=== PATIENT | female | born 1960 | race Caucasian/White ===

== ENCOUNTER 2016-11-14 08:44 | Inpatient (IN) | payer OTHER, MEDICARE ==
[~2016-11-14] VITALS: Ht 170.2 cm; Wt 59.2 kg
[2016-11-14 08:46] VITALS: BP 123/73; PULSE 71; RESP 21; TEMP 97.8; O2SAT 98
[2016-11-14] MEDS ORDERED: CYMB30CA PO (08:52)
[2016-11-14] MEDS ORDERED: GABA100C4 PO (08:53)
[2016-11-14 09:03] VITALS: O2SAT 100
[2016-11-14] MEDS ORDERED: SODIUM CHLOR 0.9% 1000 ML INJ 1,000 ML IV ONE (09:15)
[2016-11-14 09:38] LABS: AUTOMATED NEUTROPHIL # 1.8 TH/MM3 (1.8-7.7); BASOPHIL % 0.9 % (0.0-2.0); EOSINOPHIL # 0.2 TH/MM3 (0-0.4); EOSINOPHIL % 4.6 % (0.0-4.0); HEMATOCRIT 40.5 % (35.0-46.0); HEMO FLAGS DIFF FINAL; LYMPH % 52.5 % (9.0-44.0); LYMPHOCYTE # 2.7 TH/MM3 (1.0-4.8); MEAN CELL VOLUME 90.5 FL (80.0-100.0); MEAN CORPUSCULAR HEMOGLOBIN 29.6 PG (27.0-34.0); MEAN CORPUSCULAR HGB CONC 32.7 % (32.0-36.0); MONO % 6.9 % (0.0-8.0); NEUT % 35.1 % (16.0-70.0); PLATELET COUNT 168 TH/MM3 (150-450); RED BLOOD COUNT 4.48 MIL/MM3 (4.00-5.30); RED CELL DISTRIBUTION WIDTH 13.4 % (11.6-17.2); WHITE BLOOD COUNT 5.1 TH/MM3 (4.0-11.0)
[2016-11-14 10:00] LABS: ANION GAP 6 MEQ/L (5-15); AST (GOT) 27 U/L (15-37); BICARBONATE 29.3 MEQ/L (21.0-32.0); BLOOD UREA NITROGEN 9 MG/DL (7-18); CHLORIDE 105 MEQ/L (98-107); GLOMERULAR FILTRATION RATE 84 ML/MIN (>89); POTASSIUM 3.4 MEQ/L (3.5-5.1); SODIUM (NA) 140 MEQ/L (136-145)
[2016-11-14 10:04] LABS: ALKALINE PHOSPHATASE 71 U/L (45-117); ALT (GPT) 35 U/L (10-53); TOTAL BILIRUBIN ADULT 0.3 MG/DL (0.2-1.0)
[2016-11-14 10:44] LABS: AMPHETAMINE, URINE NEG (NEG); BARBITURATES, URINE NEG (NEG); COCAINE, URINE NEG (NEG)
[2016-11-14 11:13] VITALS: BP 121/68; PULSE 75; RESP 18; O2SAT 98
--- NOTE | 2016-11-14 11:24 | PD ---
HPI Chief Complaint: Medical Clearance Time Seen by Provider: 08:51 Travel History International Travel<30 days: No Contact w/Intl Traveler<30days: No Traveled to known affect area: No History of Present Illness HPI 56-year-old female presents with feeling anxious and that she is dehydrated. She states she feels like she's gonna crawl out of her skin. She denies any active suicidal or homicidal thoughts. She denies any other concurrent complaints. She states she has history of anxiety but not having it be this bad. Quality is crawling feeling. Severity is severe per patient. She denies specific modifying factors. PFSH Past Medical History Bipolar Disorder: Yes Anxiety: Yes Depression: Yes Diminished Hearing: No Fibromyalgia: Yes Neurologic: Yes (CHRONIC NECK PAIN S/P INJURY, GuillainBarr ) Menopausal: Yes : 4 Para: 1 Miscarriage: 1 : 2 Past Surgical History Other Surgery: Yes (BREAST AUGMENTATION) Social History Alcohol Use: No Tobacco Use: No Substance Use: No Allergies-Medications (Allergen,Severity, Reaction): Coded Allergies: Aspirin (Verified Allergy, Severe, 11/14/16) Ceclor (Verified Allergy, Severe, 11/14/16) Penicillin (Verified Allergy, Severe, 11/14/16) Tetracycline (Verified Allergy, Severe, 11/14/16) Tylenol (Verified Allergy, Severe, 11/14/16) Sulfa (Verified Allergy, Unknown, 11/14/16) Reported Meds & Prescriptions Reported Meds & Active Scripts Active Reported Gabapentin 100 Mg Cap 100 Mg PO DAILY Cymbalta DR (Duloxetine HCl) 30 Mg Capdr 30 Mg PO DAILY Review of Systems Except as stated in HPI: all other systems reviewed are Neg Physical Exam Narrative GENERAL: Well-nourished, well-developed patient. Anxious SKIN: Warm and dry. HEAD: Normocephalic and atraumatic. EYES: No injection or drainage. ENT: No nasal drainage noted. NECK: Supple, trachea midline. CARDIOVASCULAR: Regular rate and rhythm RESPIRATORY: Breath sounds equal bilaterally. No accessory muscle use. EXTREMITIES: No edema. NEUROLOGICAL: Awake and alert. Motor and sensory grossly within normal limits. Normal speech. Data Data Last Documented VS Vital Signs Date Time Temp Pulse Resp B/P Pulse Ox O2 Delivery O2 Flow Rate FiO2 11/14/16 11:13 75 18 121/68 98 11/14/16 09:03 Room Air 4/21/17 08:46 97.8 Orders Complete Blood Count With Diff (11/14/16 09:01) Comprehensive Metabolic Panel (11/14/16 09:01) Oximetry (11/14/16 09:01) Iv Access Insert/Monitor (11/14/16 09:01) Ecg Monitoring (11/14/16 09:01) Psych Screen (11/14/16 09:) Drug Screen, Random Urine (11/14/16 09:01) Alcohol (Ethanol) (11/14/16 09:01) Sodium Chlor 0.9% 1000 Ml Inj (Ns 1000 M (11/14/16 09:15) Labs Laboratory Tests Test 11/14/16 11/14/16 08:55 10:10 White Blood Count 5.1 TH/MM3 Red Blood Count 4.48 MIL/MM3 Hemoglobin 13.3 GM/DL Hematocrit 40.5 % Mean Corpuscular Volume 90.5 FL Mean Corpuscular Hemoglobin 29.6 PG Mean Corpuscular Hemoglobin 32.7 % Concent Red Cell Distribution Width 13.4 % Platelet Count 168 TH/MM3 Mean Platelet Volume 9.2 FL Neutrophils (%) (Auto) 35.1 % Lymphocytes (%) (Auto) 52.5 % Monocytes (%) (Auto) 6.9 % Eosinophils (%) (Auto) 4.6 % Basophils (%) (Auto) 0.9 % Neutrophils # (Auto) 1.8 TH/MM3 Lymphocytes # (Auto) 2.7 TH/MM3 Monocytes # (Auto) 0.4 TH/MM3 Eosinophils # (Auto) 0.2 TH/MM3 Basophils # (Auto) 0.0 TH/MM3 CBC Comment DIFF FINAL Differential Comment Sodium Level 140 MEQ/L Potassium Level 3.4 MEQ/L Chloride Level 105 MEQ/L Carbon Dioxide Level 29.3 MEQ/L Anion Gap 6 MEQ/L Blood Urea Nitrogen 9 MG/DL Creatinine 0.72 MG/DL Estimat Glomerular Filtration 84 ML/MIN Rate Random Glucose 95 MG/DL Calcium Level 8.8 MG/DL Total Bilirubin 0.3 MG/DL Aspartate Amino Transf 27 U/L (AST/SGOT) Alanine Aminotransferase 35 U/L (ALT/SGPT) Alkaline Phosphatase 71 U/L Total Protein 7.2 GM/DL Albumin 3.6 GM/DL Ethyl Alcohol Level LESS THAN 3 MG/DL Urine Opiates Screen NEG Urine Barbiturates Screen NEG Urine Amphetamines Screen NEG Urine Benzodiazepines Screen NEG Urine Cocaine Screen NEG Urine Cannabinoids Screen NEG MDM Medical Decision Making Medical Screen Exam Complete: Yes Emergency Medical Condition: Yes Medical Record Reviewed: Yes (past history confirmed) Interpretation(s) CBC & BMP Diagram 11/14/16 08:55 Differential Diagnosis Electrolyte abnormality, anxiety, anemia... Narrative Course Will check blood work and dose with fluids and reevaluate Labs without emergent findings,Mental health screening discussed with the patient. Psychiatric screen ordered. patient medically cleared 1050 Diagnosis Primary Impression: Feeling anxious Rebecca Bermeo MD Nov 14, 2016 11:24
[2016-11-14] MEDS ORDERED: ONDANSETRON ODT 4 MG TAB PO ONE (16:15)
--- NOTE | 2016-11-14 17:32 | RADRPT ---
EXAM DATE/TIME: 11/14/2016 16:14 [facility] COMPARISON: No previous studies available for comparison. INDICATIONS : Chest pain MEDICAL HISTORY : None. SURGICAL HISTORY : None. ENCOUNTER: Initial ACUITY: 1 day PAIN SCORE: 3/10 LOCATION: chest FINDINGS: The lungs are clear without infiltrate, nodule, or mass. There is no appreciable pleural effusion fo r technique. Heart and mediastinum are unremarkable. CONCLUSION: No acute cardiopulmonary disease. Kary Sebastian MD on November 14, 2016 at 17:30 Board Certified Radiologist. This report was verified electronically.
--- NOTE | 2016-11-14 19:16 | PD ---
History of Present Illness Chief Complaint: Medical Clearance Time Seen by Provider: 18:30 Travel History International Travel<30 Days: No Contact w/Intl Traveler<30days: No Known affected area: No Legal Status Legal Status: Voluntary History of Present Illness: History of Present Illness HPI 56-year-old female with history of bipolar disorder as well as alcohol abuse who presents to ED on a voluntary basis reporting that she is feeling anxious and that she is dehydrated. She states she feels like she's gonna crawl out of her skin. She denies any active suicidal or homicidal thoughts. Patient presents multiple physical complaints and was medically cleared. Patient is seen in J pod. EMR is reviewed. Last contact with [facility] psychiatric department was in 2012 when she was treated for alcohol intoxication and depression as well as reporting that she had taken some Adderall from a friend and believed that she was poisoned. Current toxicology is negative. Patient is seen in J pod. She is irritable and demanding and has been making multiple and frequent requests from staff for comfort care items as well as complaining of several physical complaints including feeling like she has had a seizure, numbness in her right side of her face and head. She feels like no one is addressing her physical complaints including her PCP which she saw 2 months ago. She is alert and oriented. Speech is clear but she is hyperverbal. She reports she is stressed out because she has been having car trouble and just found out her daughter is using heroin. She states that for the past 1 to 2 weeks she has been drinking excessive amounts of diet Pepsi consuming 2 - 3 liters plus 8 cans in one day. She feels that she is poisoned by this amount of soda but is unable to stop. She also complains of feeling nauseated and has been making herself throw up which we have observed here in the ED. She continues to report feeling extremely anxious. In terms odf substance use she denies any current use. PFSH Past Medical History Bipolar Disorder: Yes Anxiety: Yes Depression: Yes Diminished Hearing: No Fibromyalgia: Yes Neurologic: Yes (CHRONIC NECK PAIN S/P INJURY, GuillainBarr ) Menopausal: Yes : 4 Para: 1 Miscarriage: 1 : 2 Past Surgical History Other Surgery: Yes (BREAST AUGMENTATION) Psychiatric History Psychiatric History Hx Psychiatric Treatment: [facility], [facility] [address] IS OPEN TO THE BLUE TEAM, SHE IS GETTING MEDS FROM DR. CRUZ SHE IS BEING TREATED FOR BIPOLAR D/O. History of Inpatient Treatment: Yes (Reports multiple hospitalizations beginning in her late 20's. Her last psychiatric hospitalization was 6 years ago ) Guns or firearms in home: No Social History Single female originally from [place]. Moved to [place] 6 years ago. Lives by herself. On disability Hx Alcohol Use: No Hx Tobacco Use: No Hx Substance Use: No Substance Use Type: Alcohol, Amphetamines-Stimulants Hx of Substance Use Treatment: No Family Psychiatric History none reported Allergies-Medications (Allergen,Severity, Reaction): Coded Allergies: Aspirin (Verified Allergy, Severe, 11/14/16) Ceclor (Verified Allergy, Severe, 11/14/16) Penicillin (Verified Allergy, Severe, 11/14/16) Tetracycline (Verified Allergy, Severe, 11/14/16) Tylenol (Verified Allergy, Severe, 11/14/16) Sulfa (Verified Allergy, Unknown, 11/14/16) Reported Meds & Prescriptions Reported Meds & Active Scripts Active Reported Gabapentin 100 Mg Cap 100 Mg PO DAILY Cymbalta DR (Duloxetine HCl) 30 Mg Capdr 30 Mg PO DAILY Review of Systems Constitutional: COMPLAINS OF: Change in appetite Endocrine: DENIES: Abnorml menstrual pattern, Heat/cold intolerance, Polydipsia , Polyuria, Polyphagia Eyes: DENIES: Blurred vision, Diplopia, Eye inflammation, Eye pain, Vision loss , Photosensitivity, Double Vision Ears, nose, mouth, throat: DENIES: Tinnitus, Hearing loss, Vertigo, Nasal discharge, Oral lesions, Throat pain, Hoarseness, Ear Pain, Running Nose, Epistaxis, Sinus Pain, Toothache, Odynophagia Respiratory: DENIES: Apneas, Cough, Snoring, Wheezing, Hemoptysis, Sputum production, Shortness of breath Cardiovascular: DENIES: Chest pain, Palpitations, Syncope, Dyspnea on Exertion , PND, Lower Extremity Edema, Orthopnea, Claudication Gastrointestinal: COMPLAINS OF: Nausea, Vomiting Genitourinary: DENIES: Abnormal vaginal bleeding, Dysmenorrhea, Dyspareunia, Sexual dysfunction, Urinary frequency, Urinary incontinence, Urgency, Hematuria , Dysuria, Nocturia, Vaginal discharge Musculoskeletal: COMPLAINS OF: Joint pain, Muscle aches, Neck pain Integumentary: DENIES: Abnormal pigmentation, Pruritus, Rash, Nail changes, Breast masses, Breast skin changes, Nipple discharge Hematologic/lymphatic: DENIES: Bruising, Lymphadenopathy Immunologic/allergic: DENIES: Eczema, Urticaria Neurologic: DENIES: Abnormal gait, Headache, Localized weakness, Paresthesias, Seizures, Speech Problems, Tremor, Poor Balance Psychiatric: COMPLAINS OF: Anxiety Exam Alert: Yes Broadway: Person (ox4) Mood: Anxious Affect: Other (histrionic) Speech: Clear, Fast, Circumstantial Eye Contact: Normal Memory Intact: Comment (not impaired) Hallucinations: Other (negative) Delusions: No Suicidal: Ideation (deneis any) Homicidal: Ideation (deneis any) Insight/Judgement poor. poor MDM Medical Decision Making Medical Record Reviewed: Yes Assessment/Plan 56 year old female with history of bipolar disorder as well as alcohol abuse who presents under a voluntary status reporting increase in symptoms of anxiety, . Patient reports that she has been consuming excessive amounts of diet cola for the past 2 weeks with amounts up to 3 liters per day. At present patient presents somatically focused as well as hypomanic which can also be symptoms of caffeine intoxication. At this time the jose cruzn mets criteria for increase level of care on inpatient psychiatric unit to stabilize mood, adjust current psychiatric medications. Orders Complete Blood Count With Diff (11/14/16 09:01) Comprehensive Metabolic Panel (11/14/16 09:01) Oximetry (11/14/16 09:) Iv Access Insert/Monitor (11/14/16 09:) Ecg Monitoring (11/14/16 09:01) Psych Screen (11/14/16 09:01) Drug Screen, Random Urine (11/14/16 09:01) Alcohol (Ethanol) (11/14/16 09:01) Sodium Chlor 0.9% 1000 Ml Inj (Ns 1000 M (11/14/16 09:15) Chest, Pa & Lat (11/14/16 ) Ondansetron Odt (Zofran Odt) (11/14/16 16:15) Results Vital Signs Date Time Temp Pulse Resp B/P Pulse Ox O2 Delivery O2 Flow Rate FiO2 11/14/16 11:13 75 18 121/68 98 11/14/16 09:03 100 Room Air 11/14/16 08:46 97.8 71 21 123/73 98 Laboratory Tests Test 11/14/16 11/14/16 08:55 10:10 White Blood Count 5.1 Red Blood Count 4.48 Hemoglobin 13.3 Hematocrit 40.5 Mean Corpuscular Volume 90.5 Mean Corpuscular Hemoglobin 29.6 Mean Corpuscular Hemoglobin 32.7 Concent Red Cell Distribution Width 13.4 Platelet Count 168 Mean Platelet Volume 9.2 Neutrophils (%) (Auto) 35.1 Lymphocytes (%) (Auto) 52.5 Monocytes (%) (Auto) 6.9 Eosinophils (%) (Auto) 4.6 Basophils (%) (Auto) 0.9 Neutrophils # (Auto) 1.8 Lymphocytes # (Auto) 2.7 Monocytes # (Auto) 0.4 Eosinophils # (Auto) 0.2 Basophils # (Auto) 0.0 CBC Comment DIFF FINAL Differential Comment Sodium Level 140 Potassium Level 3.4 Chloride Level 105 Carbon Dioxide Level 29.3 Anion Gap 6 Blood Urea Nitrogen 9 Creatinine 0.72 Estimat Glomerular Filtration 84 Rate Random Glucose 95 Calcium Level 8.8 Total Bilirubin 0.3 Aspartate Amino Transf 27 (AST/SGOT) Alanine Aminotransferase 35 (ALT/SGPT) Alkaline Phosphatase 71 Total Protein 7.2 Albumin 3.6 Ethyl Alcohol Level LESS THAN 3 Urine Opiates Screen NEG Urine Barbiturates Screen NEG Urine Amphetamines Screen NEG Urine Benzodiazepines Screen NEG Urine Cocaine Screen NEG Urine Cannabinoids Screen NEG Diagnosis Primary Impression: Bipolar disorder Additional Impression: Caffeine intoxication Admitting Information Admitting Physician Requests: Admit (Dr. Alvarenga) Problem Qualifiers Primary Impression: Bipolar disorder Qualified Code: F31.0 - Bipolar affective disorder, current episode hypomanic Additional Impression: Caffeine intoxication Qualified Code: F15.920 - Caffeine intoxication, uncomplicated LevinLupe Bessie Durana ARN Nov 14, 2016 19:16
[2016-11-14 19:24] VITALS: BP 120/61; PULSE 64; RESP 19; O2SAT 100
[2016-11-14] MEDS ORDERED: MAGNESIUM HYDROXIDE SUSP 30 ML CUP PO PRN (20:00)
[2016-11-14] MEDS ORDERED: ALUMINUM/MAGNESIUM/SIMETH 30 ML CUP PO PRN (20:00)
[2016-11-14] MEDS ORDERED: OLANZapine 10 MG TAB PO ONE (20:00)
[2016-11-14 20:50] VITALS: BP 113/61; PULSE 70; RESP 16; O2SAT 100
[2016-11-14] MEDS: GABAPENTIN 100 MG CAP PO SCH (22:16)
[2016-11-15 06:33] VITALS: BP 83/48; PULSE 102; RESP 16; TEMP 98.2; O2SAT 98
[2016-11-15] MEDS: GABAPENTIN 100 MG CAP PO SCH ×2 (08:27→22:18)
[2016-11-15 09:53] LABS: ANION GAP 7 MEQ/L (5-15); BICARBONATE 29.8 MEQ/L (21.0-32.0); BLOOD UREA NITROGEN 8 MG/DL (7-18); CHLORIDE 108 MEQ/L (98-107); GLOMERULAR FILTRATION RATE 81 ML/MIN (>89); HDL CHOLESTEROL 77.8 MG/DL (40.0-60.0); LDL CHOLESTEROL 84 MG/DL (0-99); POTASSIUM 3.5 MEQ/L (3.5-5.1); SODIUM (NA) 145 MEQ/L (136-145)
[2016-11-15 18:01] VITALS: BP 110/76; PULSE 73; RESP 15; TEMP 99.2; O2SAT 100
--- NOTE | 2016-11-15 18:03 | HHI.HP ---
Provisional Diagnosis Admission Date Nov 14, 2016 at 19:50 [place] I. Bipolar disorder, mixed type Certification of Person's Competence To Provide Express and Informed Consent I have personally examined Eliza Serrato , a person being served at [facility] on, Nov 15, 2016 18:02. Express and informed consent means consent voluntarily given in writing, by a competent person, after sufficient explanation and disclosure of the subject matter involved to enable the person to make a knowing and willful decision without any element of force, fraud, deceit, duress, or other form of constraint or coercion. This person is 18 years of age or older, is not now known to be incompetent to consent to treatment with a guardian advocate, and does not have a health care surrogate or proxy currently making medical treatment decisions. I have found this person to be one of the following: [X] Competent to provide express and informed consent, as defined above, for voluntary admission to this facility and is competent to provide express and informed consent for treatment. He/she has the consistent capacity to make well reasoned, willful, and knowing decisions concerning his or her medical or mental health treatment. The person fully and consistently understands the purpose of the admission for examination/placement and is fully capable of personally exercising all rights [place] Incompetent to provide express and informed consent to voluntary admission, and this is incompetent to provide express and informed consent to treatment. The person must be transferred to involuntary status and a petition for a guardian advocate filed with the Circuit Court. [] Refusing to provide express and informed consent to voluntary admission but is competent to provide express and informed consent for treatment. The person must be discharged or transferred to involuntary status. Form shall be completed within 24 hours of a person's arrival at the receiving facility and filed in the clinical record of each person: 1. Admitted on a voluntary basis 2. Permitted to provide express and informed consent to his/her own treatment 3. Allowed to transfer from involuntary to voluntary status 4. Prior to permitting a person to consent to his or her own treatment after having been previously found incompetent to consent to treatment. History of Present Illness Capacity: Has Capacity HPI This is a 56-year-old female with a long history of bipolar disorder, presenting voluntarily for issues of extreme anxiety. Patient has reportedly been treated at [facility]. She has been taking her medications but also drinking excessive amounts of Pepsi, 2-3 L per day. She states that she is anxious and feels as if she is crawling out of her skin. She is also feeling anxious because she states her daughter is taking heroin. Patient is suicidal but not homicidal according to previous reports but having difficulty caring for herself. She speaks rapidly to this physician and sometimes in a pressured manner. She exhibits flight of ideas and grandiosity. She has many demands and states she might as well kill herself if her demands are not met. Review of Systems ROS Limitations: Clinical Condition Past Psych History Psychological trauma history Denied Violence risk - others (6 mos) Minimal Violence risk - self (6 mos) Moderate Substance Abuse History Drugs/Alcohol past 12 months Denied Past Family Social History Coded Allergies: Aspirin (Verified Allergy, Severe, 11/14/16) Ceclor (Verified Allergy, Severe, 11/14/16) Penicillin (Verified Allergy, Severe, 11/14/16) Tetracycline (Verified Allergy, Severe, 11/14/16) Tylenol (Verified Allergy, Severe, 11/14/16) Sulfa (Verified Allergy, Unknown, 11/14/16) Reported Medications Gabapentin 100 Mg [id number] Mg PO DAILY #90 CAP Ref 0 11/14/[address] (Cymbalta DR)30 Mg Capdr30 Mg PO DAILY #30 CAP Ref 0 11/14/16 Current Medications Medications (Trade) Dose Ordered Sig/Uma Route Start Time Stop Time Status Last Admin (Milk Of Magnesia Liq) 30 ml DAILY PRN PO 11/14/16 20:00 (Mag-Al Plus Susp Liq) 30 ml Q6H PRN PO 11/14/16 20:00 (Neurontin) 100 mg DAILY PO 11/15/16 09:00 11/15/16 08:27 Family History Positive for mood disorders Social History Lives alone. Receives Social Security disability. Unemployed. Does not abuse alcohol or drugs. Patient's Strengths (min. 2) Verbal and resilient. Physical Exam GENERAL: SKIN: Warm and dry. HEAD: Normocephalic. EYES: No scleral icterus. No injection or drainage. NECK: Supple, trachea midline. No JVD or lymphadenopathy. CARDIOVASCULAR: Regular rate and rhythm without murmurs, gallops, or rubs. RESPIRATORY: Breath sounds equal bilaterally. No accessory muscle use. GASTROINTESTINAL: Abdomen soft, non-tender, nondistended. MUSCULOSKELETAL: No cyanosis, or edema. BACK: Nontender without obvious deformity. No CVA tenderness. Vital Signs Vital Signs Date Time Temp Pulse Resp B/P Pulse Ox O2 Delivery O2 Flow Rate FiO2 11/15/16 06:33 98.2 102 16 83/48 98 11/14/16 19:24 Room Air Mental Status Examination Speech: Rapid Orientation: x3 Memory: Unremarkable Thought Process: Flight of Ideas, Goal Directed Thought Content: Bizarre thinking Hallucination Type: None Attention and Concentration: Good Suicidal Ideation: Yes Previous Suicide Attempts: No Homicidal Ideation: No Previous Homicide Attempts: No Insight: Fair Judgment: WNL Affect: Anxious Mood: Anxious Motor Activity: Normal gait Assessment & Plan Problem List: (1) Bipolar disorder, curr episode manic w/o psychotic features, moderate ICD Code: F31.12 Assessment & Plan Estimated LOS: 4 days days patient requires stabilization on mood stabilizing therapy. She is obviously manic with flight of ideas, demanding and irritable nature and suicidal threats. This physician is starting her on Lamictal, Neurontin and Cymbalta, the latter 2 at her request. She will be engaged in individual and family therapies. We will obtain more history and this physician asked the supervisor case loading to call the patient's family members. This physician discussed the patient's behavior with the admitting nurse. Additionally, she will receive an EKG and comprehensive metabolic panel to ensure safety of her mood stabilizing medications. Suhas Alvarenga MD Nov 15, 2016 18:03
[2016-11-15] MEDS ORDERED: lamoTRIgine 25 MG TAB PO SCH (21:00)
[2016-11-15] MEDS: DULoxetine HCl DR 30 MG CAP PO SCH (22:18)
[2016-11-16 04:50] VITALS: BP 100/59; PULSE 65; RESP 18; TEMP 97.9; O2SAT 100
[2016-11-16 07:57] VITALS: BP 150/78; PULSE 80; RESP 16
[2016-11-16] MEDS: DULoxetine HCl DR 30 MG CAP PO SCH (08:51)
[2016-11-16] MEDS: GABAPENTIN 100 MG CAP PO SCH (08:51)
--- NOTE | 2016-11-16 09:29 | HHI.DS ---
Psychiatry Discharge Summary Inpatient Psychiatric care?: Yes Advance Directive: No Reason Not Provided: n/a Mental Health AdvanceDirective: No Health Care Proxy: No Admission Admission Date Nov 14, 2016 at 19:50 Admission Diagnosis: (1) Bipolar disorder, curr episode manic w/o psychotic features, moderate ICD Code: F31.12 Brief History This is a 56-year-old female with a long history of bipolar disorder, presenting voluntarily for issues of extreme anxiety. Patient has reportedly been treated at [facility]. She has been taking her medications but also drinking excessive amounts of Pepsi, 2-3 L per day. She states that she is anxious and feels as if she is crawling out of her skin. She is also feeling anxious because she states her daughter is taking heroin. Patient is suicidal but not homicidal according to previous reports but having difficulty caring for herself. She speaks rapidly to this physician and sometimes in a pressured manner. She exhibits flight of ideas and grandiosity. She has many demands and states she might as well kill herself if her demands are not met. Tobacco Use In Past 30 Days: No Tobacco Past 30 Days Alcohol Use: Monthly or Less Hospital Course Patient initially agreed to be treated by the staff and this physician, initiating mood stabilizing therapy. She then changed her mind and signed a right to release. Results Blood Pressure 150 / 78 Vital Signs Date Time Temp Pulse Resp B/P Pulse Ox O2 Delivery O2 Flow Rate FiO2 11/16/16 07:57 80 16 150/78 11/16/16 04:50 97.9 100 11/14/16 19:24 Room Air Laboratory Tests Test 11/14/16 11/15/16 08:55 08:41 Lymphocytes (%) (Auto) 52.5 % (9.0-44.0) Eosinophils (%) (Auto) 4.6 % (0.0-4.0) Potassium Level 3.4 MEQ/L (3.5-5.1) Estimat Glomerular Filtration 84 ML/MIN (>89) 81 ML/MIN (>89) Rate Chloride Level 108 MEQ/L (98-107) HDL Cholesterol 77.8 MG/DL (40.0-60.0) Laboratory Results Test 11/15/16 08:41 Triglycerides Level 77 MG/DL (42-150) Cholesterol Level 177 MG/DL (120-200) LDL Cholesterol 84 MG/DL (0-99) HDL Cholesterol 77.8 MG/DL (40.0-60.0) Summary of Procedures None Imaging Last Impressions Chest X-Ray 11/14/16 0000 Signed Impressions: Service Date/Time: Monday, November 14, 2016 16:14 - CONCLUSION: No acute cardiopulmonary disease. Kary Sebastian MD Pending results at discharge: No Medications # of Antipsychotic meds at D/C: 0 Approp Antipsych med options 1 - Minimum of three failed multiple trials of monotherapy. 2 - Documented plan to taper to monotherapy due to previous use of multiple meds OR cross-taper in progress at D/C. 3 - Documentation of augmentation of Clozapine. 4 - Justification other than those listed in allowable values 1-3, document here : Discharge Discharge Date: Nov 16, 2016 Discharge Diagnosis: (1) Adjustment disorder with mixed disturbance of emotions and conduct Diagnosis: Principal ICD Code: F43.25 Mental Status Exam at Disch This physician is uncertain if the patient ever had bipolar disorder as she came across as calm and not manic. She wanted her antidepressant medicine but declined any mood stabilizing medicine. She did not speak too rapidly or demonstrate significant flight of ideas or other symptoms of latrice or depression. She did not want to participate in the therapeutic milieu. She signed a right to release and this physician does not feel she meets inpatient criteria and therefore was discharged. She denied any suicidal or homicidal ideation, plan or intent throughout her hospital stay. No psychosis. Pt Condition on Discharge: Stable Discharge Disposition: Discharge Home Discharge Instructions Diet Instructions: As Tolerated, No Restrictions Activities you can perform: Regular-No Restrictions Discharge Time <= 30 minutes Discharge/Advance Care Plan Health Problems: (1) Bipolar disorder, curr episode manic w/o psychotic features, moderate Goals to promote your health * To prevent worsening of your condition and complications * To maintain your health at the optimal level Directions to meet your goals Take your medications as prescribed Follow your dietary instruction Follow activity as directed Keep your appointments as scheduled Take your immunizations and boosters as scheduled If your symptoms worsen call your PCP, if no PCP go to Urgent Care Center or Emergency Room For 16/02 questions related to your inpatient stay or results of tests pending at discharge, please contact Dr. Suhas Alvarenga at Smoking is Dangerous to Your Health. Avoid second hand smoking Suhas Alvarenga MD Nov 16, 2016 09:29
[2016-11-17 13:34] LABS: HEMOGLOBIN A1b 0.6 %; HEMOGLOBIN Ao 87.3 %; HEMOGLOBIN F 0.8 %; HEMOGLOBIN LA1C 1.6 %; HEMOGLOBIN P3 3.1 %
== END 2016-11-16 11:10 | disposition home or self-care (01) | DRG 882 ==
LOC: NEPC 08:44 → NEDA 19:50 → H260 20:54
PROVIDERS: ADMIT Psychiatry & Neurology Psychiatry; ATTEND Psychiatry & Neurology Psychiatry
DX: F43.25 Adjustment disorder with mixed disturbance of emotions and conduct (principal); F15.129 Other stimulant abuse with intoxication, unspecified
CPT/HCPCS: 71020; 80048; 80053; 80061; 80307; 83036; 85025; 96360; J7030

== ENCOUNTER 2017-06-13 12:47 | Emergency (ER) | payer OTHER, MEDICAID ==
[~2017-06-13] VITALS: Ht 170.2 cm; Wt 61.5 kg
[~2017-06-13 12:47] MED LIST: CYMB30CA PO; GABA100C4 PO
--- NOTE | 2017-06-13 13:01 | PD ---
HPI Chief Complaint: Laceration/Skin Injury Time Seen by Provider: 13:00 Travel History International Travel<30 days: No Contact w/Intl Traveler<30days: No Traveled to known affect area: No History of Present Illness HPI This 57-year-old female presents to the emergency department complaining of a laceration to the inferior lateral portion of the right knee. States the bleeding was significant so they applied a tourniquet just above the knee joint and bleeding was controlled. States that she was in her yard working and walked next to a piece of broken glass that was sticking out of her garbage can. She says that she was able to walk directly afterwards and denies numbness or tingling of her extremity. Tetanus status- 7 years ago. Patient is otherwise healthy and does not take medication regularly. PFSH Past Medical History Hx Anticoagulant Therapy: No Bipolar Disorder: Yes Anxiety: Yes Depression: Yes Cardiovascular Problems: No Chemotherapy: No Cerebrovascular Accident: No Diabetes: No Diminished Hearing: No Fibromyalgia: Yes Neurologic: Yes (CHRONIC NECK PAIN S/P INJURY, GuillainBarr ) Respiratory: No ?: Unknown Menopausal: Yes : 4 Para: 1 Miscarriage: 1 : 2 Past Surgical History Hysterectomy: No Other Surgery: Yes (BREAST AUGMENTATION) Social History Alcohol Use: No Tobacco Use: No Substance Use: Yes Allergies-Medications (Allergen,Severity, Reaction): Coded Allergies: acetaminophen (Unverified Allergy, Severe, 06/13/17) aspirin (Unverified Allergy, Severe, 06/13/17) cefaclor (Unverified Allergy, Severe, 06/13/17) doxycycline (Unverified Allergy, Severe, 06/13/17) minocycline (Unverified Allergy, Severe, 06/13/17) penicillin G (Unverified Allergy, Severe, 06/13/17) tigecycline (Unverified Allergy, Severe, 06/13/17) Sulfa (Sulfonamide Antibiotics) (Unverified Allergy, Unknown, 06/13/17) Reported Meds & Prescriptions Reported Meds & Active Scripts Active Clindamycin (Clindamycin HCl) 300 Mg Cap 300 Mg PO TID 7 Days Reported Gabapentin 300 Mg Cap 300 Mg PO HS Cymbalta DR (Duloxetine HCl) 30 Mg Capdr 30 Mg PO BID Review of Systems Except as stated in HPI: all other systems reviewed are Neg Physical Exam Narrative GENERAL: Well-nourished, well-developed patient, rather anxious SKIN: Focused skin assessment warm/dry. HEAD: Normocephalic. EYES: No scleral icterus. No injection or drainage. NECK: Supple, trachea midline. No JVD or lymphadenopathy. CARDIOVASCULAR: Regular rate and rhythm without murmurs, gallops, or rubs. RESPIRATORY: No accessory muscle use. Right leg- inferior lateral aspect of knee, 1-1-1/2 cm U-shaped laceration, bleeding controlled, no evidence of neurovascular compromise or tendon involvement. Patient is full range of motion of knee and leg MUSCULOSKELETAL: No cyanosis, or edema. BACK: Nontender without obvious deformity. No CVA tenderness. Data Data Orders Orders Tetanus/Diphtheria Tox Adult (Tetanus/Di (06/13/17 13:15) Lidocaine 1% Inj (50 Ml) (Xylocaine 1% I (06/13/17 13:15) Lidocaine Pf 1% Inj (Xylocaine-Mpf 1% In (06/13/17 13:16) Wound Care (06/13/17 14:03) Ed Discharge Order (06/13/17 14:04) [facility] Medical Decision Making Medical Screen Exam Complete: Yes Emergency Medical Condition: Yes Differential Diagnosis Right knee laceration versus avulsion versus abrasion Narrative Course This 57-year-old female presents to the emergency department complaining of a laceration to the lateral aspect of the inferior portion of the right knee. States the bleeding was significant so they applied a tourniquet just above the knee joint and bleeding was controlled. States that she was in her yard working and walked next to a piece of broken glass that was sticking out of her garbage can. She says that she was able to walk directly afterwards and denies numbness or tingling of her extremity. Tetanus status- 7 years ago. Patient is otherwise healthy and does not take medication regularly. Vital signs stable Physical exam- patient rather anxious regarding the exam. No evidence of neurovascular compromise, tendon or ligament involvement. Aspiration is clean and bleeding controlled. I discussed this case with Dr. Banks as patient was very anxious regarding this laceration. She kindly also evaluated the wound. Laceration repair completed, patient tolerated well Antibiotics prescribed Patient to follow up with her primary care physician within 3 days. Also advised to have suture removal within 7-10 days Advised to return to the emergency department if symptoms persist or worsen Procedures Procedure Narrative LACERATION LOCATION: Inferolateral aspect of right knee LENGTH: 1-1-1/2 cm NUMBER OF STITCHES/MAY: 4 REPAIR: The area of the laceration was prepped with Betadine and sterilely draped. The laceration was infiltrated with 1% lidocaine without epinephrine. The wound was copiously irrigated and explored without evidence of foreign body, tendon injury or neurovascular injury. The wound was closed using 4-0 Prolene. This was a single layer repair. A sterile dressing was applied. The patient was advised to keep the dressing clean and dry. Patient tolerated the procedure well. Diagnosis Primary Impression: Laceration of knee Qualified Codes: S81.011A - Laceration without foreign body, right knee, initial encounter Referrals: Primary Care Physician Additional Instructions: Follow-up with her primary care physician within 3 days. Medication as prescribed If your pain worsens or persists return to the emergency department Scripts Clindamycin (Clindamycin) 300 Mg Cap 300 MG PO TID for Infection for 7 Days, CAP 0 Refills Prov: JocelynMichelle DO 06/13/17 Disposition: 01 DISCHARGE HOME Condition: Stable Alize Ricketts Jun 13, 2017 13:00
[2017-06-13] MEDS ORDERED: CYMB30CA PO (13:08)
[2017-06-13] MEDS ORDERED: GABA300C5 PO (13:08)
[2017-06-13] MEDS ORDERED: LIDOCAINE HCL 1% 50 ML VIAL INFIL ONE (13:15)
[2017-06-13] MEDS ORDERED: TETANUS/DIPHTHERIA TOXOID ADULT 0.5 ML VIAL IM ONE (13:15)
[2017-06-13] MEDS ORDERED: LIDOCAINE HCL 1% PF 30 ML VIAL ONE (13:16)
[2017-06-13] MEDS ORDERED: CLIN300C5 PO (14:03)
== END 2017-06-13 14:20 | disposition home or self-care (01) ==
LOC: NEPD 12:47
DX: S81.011A Laceration without foreign body, right knee, initial encounter (principal); W25.XXXA Contact with sharp glass, initial encounter; Y92.007 Garden or yard of unspecified non-institutional (private) residence as the place of occurrence of the external cause; Z23 Encounter for immunization
CPT/HCPCS: 12001; 90471; 90714